=== PATIENT | male | born 1980 | race Caucasian/White ===

== ENCOUNTER 2023-12-03 13:40 | Inpatient (IN) | payer OTHER ==
[~2023-12-03] VITALS: Ht 180.3 cm; Wt 81.6 kg
[2023-12-03 13:43] VITALS: BP 102/66; PULSE 72; RESP 18; O2SAT 97
[2023-12-03 15:36] LABS: HEMATOCRIT 40.7 % (36-52); HEMOGLOBIN 13.8 g/dL (12.0-18.0); MEAN CORPUSCULAR HEMOGLOBIN 31 pg (27-31); MEAN CORPUSCULAR HGB CONC 34 g/dL (33-37); MEAN CORPUSCULAR VOLUME 92.4 fL (80-94); PLATELET COUNT (AUTO) 127 K/uL (140-450); RED CELL DISTRIBUTION WIDTH 14.1 % (11.6-13.7); WHITE BLOOD COUNT (AUTO) 3.7 K/uL (4.8-10.8)
[2023-12-03 15:47] LABS: ANION GAP 11.1 (8-16); CARBON DIOXIDE 28.7 mmol/L (21-32); CREATININE 0.9 mg/dL (0.6-1.3); POTASSIUM 3.8 mmol/L (3.5-5.1)
[2023-12-03 16:04] LABS: LYMPHOCYTES % (MANUAL) 42 % (20-46)
[2023-12-03 16:05] LABS: EOSINOPHILS % (MANUAL) 9 % (0-4); METAMYELOCYTES % 1 % (0-0); MONOCYTES % (MANUAL) 4 % (5-12); PLATELET ESTIMATE DECREASED
[2023-12-03] MEDS ORDERED: MORPHINE SULFATE 4 MG/ML SYR IVP PRN (18:10)
[2023-12-03] MEDS ORDERED: MAGNESIUM OXIDE 400 MG TAB PO PRN (18:10)
[2023-12-03] MEDS ORDERED: ONDANSETRON 4 MG/2 ML VIAL IVP PRN (18:10)
[2023-12-03] MEDS ORDERED: KCL 20 MEQ IN 100 mL PREMIX 200 ML IV PRN (18:10)
[2023-12-03] MEDS ORDERED: MAG SULF 2000 MG/WATER PREMIX 50 ML IV PRN (18:10)
[2023-12-03] MEDS ORDERED: HYDROcodone/APAP 5/325 MG 1 TAB TAB PO PRN (18:10)
[2023-12-03] MEDS ORDERED: POTASSIUM CHLORIDE 10 MEQ TABER PO PRN (18:10)
[2023-12-03] MEDS ORDERED: ACETAMINOPHEN 325 MG TAB PO PRN (18:10)
[2023-12-03 19:05] LABS: APPEARANCE,URINE CLEAR (CLEAR); BILIRUBIN,URINE NEGATIVE (NEGATIVE); BLOOD, URINE NEGATIVE (NEGATIVE); COLOR,URINE YELLOW (YELLOW); LEUKOCYTE ESTERASE ,URINE NEGATIVE (NEGATIVE); NITRITE, URINE NEGATIVE (NEGATIVE); PROTEIN,URINE NEGATIVE (NEGATIVE); UGLUCOSE NEGATIVE (NEGATIVE)
[2023-12-03 19:06] LABS: AMPHETAMINE, URINE NEGATIVE ng/ml (NEG <=1000); BARBITURATE, URINE NEGATIVE ng/ml (NEG <=200); BENZODIAZEPINE, URINE POSITIVE ng/mL (NEG <=200); CANNABINOID, URINE NEGATIVE ng/mL (NEG <=50); COCAINE, URINE NEGATIVE ng/mL (NEG <=300); OPIATE, URINE NEGATIVE ng/mL (NEG <=2000); PHENCYCLIDINE SCREEN,URINE NEGATIVE ng/mL (NEG <=25)
[2023-12-03] MEDS: NACL 0.9% 1,000 ML IV SCH (19:46)
[2023-12-03] MEDS ORDERED: ATOR20TA40 PO (20:26)
[2023-12-03] MEDS ORDERED: BENZ-283 PO (20:26)
[2023-12-03] MEDS ORDERED: HYD2.5O TP (20:38)
[2023-12-03] MEDS ORDERED: LORA-476 PO (20:38)
[2023-12-03] MEDS ORDERED: FLUC200T PO (20:38)
[2023-12-03] MEDS ORDERED: HAL2L PO (20:38)
[2023-12-03] MEDS ORDERED: [UNRECOGNIZED DRUG - CODE] TP (20:38)
[2023-12-03] MEDS ORDERED: ACET-2619 PO (20:38)
[2023-12-03] MEDS ORDERED: BICT1TAB PO (20:38)
[2023-12-03] MEDS ORDERED: DIVA500T1 PO (20:38)
[2023-12-03 20:52] VITALS: BP 134/78; PULSE 82; RESP 15; TEMP 97.8; O2SAT 95
[2023-12-04 00:38] VITALS: PULSE 82; O2SAT 95
[2023-12-04 04:00] VITALS: BP 134/78; PULSE 82; PULSE 84; RESP 15; TEMP 97.8; O2SAT 95
[2023-12-04 07:10] LABS: BASOPHILS % (AUTO) 0.4 % (0.0-2.0); EOSINOPHILS # (AUTO) 0.2 K/uL (0-0.4); EOSINOPHILS % (AUTO) 5.4 % (0.0-4.0); HEMATOCRIT 38.6 % (36-52); HEMOGLOBIN 13.1 g/dL (12.0-18.0); LYMPHOCYTES # (AUTO) 1.9 K/uL (2.0-11.5); LYMPHOCYTES % (AUTO) 42.3 % (20.5-51.1); MEAN CORPUSCULAR HEMOGLOBIN 31 pg (27-31); MEAN CORPUSCULAR HGB CONC 34 g/dL (33-37); MEAN CORPUSCULAR VOLUME 92.5 fL (80-94); MONOCYTES # (AUTO) 0.7 K/uL (0.8-1.0); NEUTROPHILS # (AUTO) 1.6 K/uL (1.8-7.7); NEUTROPHILS % (AUTO) 35.9 % (42.2-75.2); PLATELET COUNT (AUTO) 132 K/uL (140-450); RED BLOOD CELL COUNT(AUTO) 4.17 MIL/uL (4.20-6.10); WHITE BLOOD COUNT (AUTO) 4.5 K/uL (4.8-10.8)
[2023-12-04 07:52] LABS: ALBUMIN 3.2 g/dL (3.4-5.0); CALCIUM 8.7 mg/dL (8.5-10.1); CARBON DIOXIDE 25.9 mmol/L (21-32); CREATININE 0.8 mg/dL (0.6-1.3); MAGNESIUM 1.9 mg/dL (1.8-2.4); POTASSIUM 3.9 mmol/L (3.5-5.1); TOTAL BILIRUBIN 0.3 mg/dL (0.0-1.0); TOTAL PROTEIN, SERUM 7.7 g/dL (6.4-8.2)
[2023-12-04 08:00] VITALS: BP 128/72; PULSE 78; PULSE 89; RESP 17; TEMP 98; O2SAT 96; O2SAT 99
[2023-12-04] MEDS: DOCUSATE SODIUM 100 MG GELCAP PO SCH (09:00)
[2023-12-04 12:00] VITALS: BP 118/70; PULSE 81; RESP 19; TEMP 97.4; O2SAT 97
[2023-12-04 16:00] VITALS: BP 138/80; PULSE 82; RESP 19; TEMP 98; O2SAT 96
[2023-12-04 20:00] VITALS: BP 138/80; PULSE 82; RESP 19; TEMP 98; O2SAT 96
[2023-12-05] VITALS: BP 113/71; PULSE 89; RESP 16; TEMP 97.1; O2SAT 96
[2023-12-05 04:00] VITALS: BP 113/71; PULSE 89; RESP 16; TEMP 97.1; O2SAT 96
[2023-12-05 08:00] VITALS: BP 118/78; PULSE 92; RESP 18; TEMP 97.9; O2SAT 99
[2023-12-05 09:03] LABS: BASOPHILS % (AUTO) 0.7 % (0.0-2.0); EOSINOPHILS # (AUTO) 0.3 K/uL (0-0.4); EOSINOPHILS % (AUTO) 5.1 % (0.0-4.0); HEMATOCRIT 38.8 % (36-52); LYMPHOCYTES # (AUTO) 1.8 K/uL (2.0-11.5); LYMPHOCYTES % (AUTO) 34.9 % (20.5-51.1); MEAN CORPUSCULAR HEMOGLOBIN 31 pg (27-31); MEAN CORPUSCULAR HGB CONC 33 g/dL (33-37); MEAN CORPUSCULAR VOLUME 92.7 fL (80-94); MONOCYTES # (AUTO) 0.9 K/uL (0.8-1.0); MONOCYTES % (AUTO) 17.4 % (1.7-9.3); NEUTROPHILS # (AUTO) 2.2 K/uL (1.8-7.7); NEUTROPHILS % (AUTO) 41.9 % (42.2-75.2); PLATELET COUNT (AUTO) 128 K/uL (140-450); RED BLOOD CELL COUNT(AUTO) 4.18 MIL/uL (4.20-6.10); RED CELL DISTRIBUTION WIDTH 14.4 % (11.6-13.7); WHITE BLOOD COUNT (AUTO) 5.2 K/uL (4.8-10.8)
[2023-12-05 09:19] LABS: ALBUMIN 3.2 g/dL (3.4-5.0); CALCIUM 8.4 mg/dL (8.5-10.1); CARBON DIOXIDE 26.8 mmol/L (21-32); CREATININE 0.7 mg/dL (0.6-1.3); MAGNESIUM 1.8 mg/dL (1.8-2.4); POTASSIUM 3.8 mmol/L (3.5-5.1); TOTAL BILIRUBIN 0.3 mg/dL (0.0-1.0); TOTAL PROTEIN, SERUM 7.5 g/dL (6.4-8.2)
[2023-12-05 12:00] VITALS: BP 118/78; PULSE 92; RESP 18; TEMP 97.9; O2SAT 99
[2023-12-05 16:00] VITALS: BP 126/80; PULSE 98; RESP 18; TEMP 97.2; O2SAT 98
[2023-12-05 17:08] VITALS: BP 126/80; PULSE 98; RESP 18; TEMP 97.2
== END 2023-12-05 20:20 | DRG 52 ==
LOC: MED 13:40 → MTU 18:17 → OBSVTOIN 18:17 → MTU 19:50
PROVIDERS: ADMIT Hospitalist; ATTEND Hospitalist
DX: G93.41 Metabolic encephalopathy (principal); S09.90XA Unspecified injury of head, initial encounter; F25.9 Schizoaffective disorder, unspecified; E78.5 Hyperlipidemia, unspecified; W18.30XA Fall on same level, unspecified, initial encounter; Y93.89 Activity, other specified; Y92.89 Other specified places as the place of occurrence of the external cause; Y99.8 Other external cause status; Z21 Asymptomatic human immunodeficiency virus [HIV] infection status
CPT/HCPCS: 36415; 70450; 71045; 80048; 80053; 80305; 81003; 83735; 85025; 87081; 93005; 97116; 97163-GP; 99285; G0482; J1644